=== PATIENT | female | born 1965 | race Caucasian/White ===

== ENCOUNTER 2017-06-15 22:46 | Emergency (ER) | payer OTHER ==
[~2017-06-15] VITALS: Ht 160 cm; Wt 120.4 kg
[~2017-06-15 22:46] MED LIST: ALDOMET250 MG PO; AUGMENTIN875 MG PO; CIPRO500 MG PO; FLOMAX0.4 MG PO; HYDROCHLOROTHIA25 MG PO; KEFLEX500 MG PO; PERCOCET 5/31 TABLET PO; ZOFRAN4 MG PO
[2017-06-15 23:20] VITALS: BP 159/127
[2017-06-15 23:39] LABS: HEMATOCRIT 38.8 % (36.0-46.0); HEMOGLOBIN 12.6 G/DL (11.9-15.5); MCH 27.8 PG (29.0-34.0); MCHC 32.5 G/DL (30.0-36.0); MCV 85.5 FL (83-99); PLATELET COUNT 374 K/uL (156-360); RBC DIS.WIDTH-CV 13.4 % (11.8-14.6); RBC DIS.WIDTH-SD 41.6 % (39-53); RED BLOOD COUNT 4.54 M/uL (3.80-5.20); WHITE BLOOD COUNT 15.7 K/uL (4.1-10.2)
[2017-06-15 23:48] LABS: ALBUMIN 4.2 g/dL (3.2-4.8); CHLORIDE 98 mEq/L (99-109); POTASSIUM 3.2 mEq/L (3.7-5.4); SODIUM 133 mEq/L (136-147)
[2017-06-15 23:50] LABS: GLUCOSE 285 mg/dL (70-99); TOTAL PROTEIN 7.6 g/dL (6.4-8.3)
[2017-06-15 23:52] LABS: TOTAL BILIRUBIN 0.5 mg/dL (0.0-1.0)
[2017-06-15 23:54] LABS: ALKALINE PHOSPHATASE 83 IU/L (3-129); CREATININE 0.8 mg/dL (0.6-1.3); GFR ESTIMATE (CALCULATED) > 59 mL/min/
[2017-06-15 23:55] LABS: UREA NITROGEN (BUN) 10 mg/dL (9-23)
[2017-06-15 23:56] LABS: AST (GOT) 12 IU/L (2-34)
[2017-06-15 23:57] LABS: ALT (GPT) 14 IU/L (3-49); LIPASE 15 U/L (1.0-51.0)
[2017-06-16] MEDS ORDERED: ALDOMET250 MG PO (01:07)
[2017-06-16] MEDS ORDERED: METFORMIN HCL850 MG PO (01:07)
[2017-06-16] MEDS ORDERED: HYDROCHLOROTHIA25 MG PO (01:07)
[2017-06-16] MEDS ORDERED: LOSARTAN POTAS100 MG PO (01:17)
[2017-06-16] MEDS ORDERED: NORCO 5/3251 TABLET PO (01:18)
== END 2017-06-16 01:10 | disposition home or self-care (01) ==
LOC: EME 22:46
PROVIDERS: Emergency Medicine
DX: K80.20 Calculus of gallbladder without cholecystitis without obstruction (principal); E87.6 Hypokalemia; D72.829 Elevated white blood cell count, unspecified; I10 Essential (primary) hypertension; E11.9 Type 2 diabetes mellitus without complications; F41.9 Anxiety disorder, unspecified; Z91.14 Patient's other noncompliance with medication regimen; Z88.8 Allergy status to other drugs, medicaments and biological substances
CPT/HCPCS: 76705; 80053; 81003; 83690; 85027; 99281; 99284